=== PATIENT | female | born 1980 | race Caucasian/White ===

== ENCOUNTER 2020-02-12 20:51 | Emergency (ER) | payer OTHER ==
[~2020-02-12] VITALS: Ht 160 cm; Wt 60.8 kg
[2020-02-12 20:56] VITALS: Ht 160 cm; Wt 60.8 kg
[2020-02-12 21:49] VITALS: BP 110/62
== END 2020-02-12 21:40 | disposition home or self-care (01) ==
LOC: ED 20:51
DX: S39.011A Strain of muscle, fascia and tendon of abdomen, initial encounter (principal); J45.909 Unspecified asthma, uncomplicated; X58.XXXA Exposure to other specified factors, initial encounter; Y93.89 Activity, other specified; Y92.89 Other specified places as the place of occurrence of the external cause; Y99.8 Other external cause status